=== PATIENT | male | born 1990 | race Caucasian/White ===

== ENCOUNTER 2018-08-28 11:01 | Emergency (ER) | payer BC, MEDICAID ==
[~2018-08-28] VITALS: Ht 172.7 cm; Wt 56.7 kg
[2018-08-28 11:17] VITALS: BP 110/62
== END 2018-08-28 15:34 | disposition left against medical advice (07) ==
LOC: ER 11:01
DX: T18.9XXA Foreign body of alimentary tract, part unspecified, initial encounter (principal); F17.210 Nicotine dependence, cigarettes, uncomplicated; Z53.29 Procedure and treatment not carried out because of patient's decision for other reasons; X58.XXXA Exposure to other specified factors, initial encounter; Y93.89 Activity, other specified; Y99.8 Other external cause status; Y92.89 Other specified places as the place of occurrence of the external cause
CPT/HCPCS: 70360; 71046